=== PATIENT | male | born 1975 | race Asian ===

== ENCOUNTER 2022-08-28 08:33 | Outpatient (CLI) | payer BC, SELFPAY | END 2022-08-28 08:34 | disposition home or self-care (01) | PROVIDERS: PCP Family Medicine; Visit Provider Family Medicine | DX: Z00.00 Encounter for general adult medical examination without abnormal findings (principal); R68.82 Decreased libido; I10 Essential (primary) hypertension; G62.9 Polyneuropathy, unspecified; E55.9 Vitamin D deficiency, unspecified; Z13.21 Encounter for screening for nutritional disorder; K21.9 Gastro-esophageal reflux disease without esophagitis; R79.89 Other specified abnormal findings of blood chemistry | CPT/HCPCS: 80053; 80061; 82306; 82607; 84270; 84402; 84403; 84443 ==

== ENCOUNTER 2023-11-26 12:43 | Outpatient (CLI) | payer BC, SELFPAY | END 2023-11-26 12:44 | disposition home or self-care (01) | PROVIDERS: PCP Family Medicine; Visit Provider Family Medicine | DX: E55.9 Vitamin D deficiency, unspecified (principal); I10 Essential (primary) hypertension; Z12.5 Encounter for screening for malignant neoplasm of prostate; Z13.220 Encounter for screening for lipoid disorders | CPT/HCPCS: 80053; 80061; 82306; G0103 ==

== ENCOUNTER 2023-12-03 08:47 | Outpatient (CLI) | payer BC, SELFPAY ==
--- NOTE | 2023-12-03 09:15 | CRLHL7_ITS ---
For Patients: As a result of the Century Cures Act, medical imaging exams and procedure reports are released immediately into your electronic medical record. You may view this report before your referring provider. If you have questions, please contact your health care provider. CLINICAL HISTORY: Unspecified abdominal pain COMPARISON: none TECHNIQUE: Real time mclaughlin scale imaging and color Doppler analysis was performed of the abdomen. FINDINGS: Sonographic imaging demonstrates normal size and uniform echotexture of the liver. The main portal vein is patent with antegrade flow it measures 9.3 millimeters. The spleen is of normal size. The pancreas is not well visualized. The proximal abdominal aorta and IVC appear normal. There is no evidence of ascites. The gallbladder is of normal size and there is no evidence of sludge or stones within the gallbladder lumen. The gallbladder wall measures 2.6 mm in thickness. The common bile duct measures 3.6 mm in size within the sandoval hepatis. The kidneys appear symmetric. The right kidney measures 10.6 cm in length and the left kidney measures 10.3 cm. There is no evidence of a renal calculus or hydronephrosis. IMPRESSION: Unremarkable abdominal ultrasound. Dictated by Jacques Ibarra MD @ 12/03/2023 10:24:18 AM (Electronically Signed)
== END 2023-12-03 08:48 | disposition home or self-care (01) ==
LOC: US 08:49
PROVIDERS: PCP Family Medicine; Visit Provider Family Medicine
DX: R10.9 Unspecified abdominal pain (principal)
CPT/HCPCS: 76700